=== PATIENT | male | born 1965 | race Caucasian/White ===

== ENCOUNTER 2022-07-30 16:24 | Outpatient (CLI) | payer OTHER, SELFPAY ==
--- NOTE | ~2022-07-30 | XR_ITS ---
XR hand LT 2V DATE: 07/30/2022 16:43 INDICATION: Metal survey prior to MR examination TECHNIQUE: AP and lateral views COMPARISON: None FINDINGS: No radiopaque or metallic soft tissue foreign body. No recent fracture or dislocation, periosteal reaction or bone destruction, erosive change or chondro calcinosis. IMPRESSION: Negative; no radiopaque or metallic foreign body Reviewed, dictated and finalized at location A.
--- NOTE | ~2022-07-30 | MR_ITS ---
EXAMINATION: MR knee LT wo con DATE: 07/30/2022 17:16 INDICATION: Left knee instability TECHNIQUE: Magnetic resonance imaging (MRI) of the left knee was performed without intravenous contra st. Sequences included coronal PD-weighted FSE, coronal PD-weighted FS FSE, sagittal T2-weighted FSE , sagittal PD-weighted FS FSE and axial PD weighted fat saturated FSE. COMPARISON: None. FINDINGS: Medial compartment: Longitudinal horizontal tear extending to the superior articular surface of the posterior horn and po sterior body of the medial meniscus. Tiny para labral cysts at the periphery of the junction of the b vernon and posterior horn with larger multilobulated para labral cyst extending laterally from the regio n of the posterior root. Deep chondral fissure without degenerative subchondral changes along the lat eral side of the central weightbearing medial femoral condyle. Remaining cartilage in the medial comp artment is normal. Lateral compartment: Lateral meniscus is normal. Articular cartilage is normal. Patellofemoral compartment: Trochlea preserved cartilage thickness but with deep chondral fissuring without degenerative subchond ral changes at both the medial and lateral patellar facets. Trochlear cartilage is normal. Ligaments and tendons: Anterior and posterior cruciate ligaments are normal. There is thickening along the proximal medial c ollateral ligament without significant increased signal or surrounding edema consistent with mild sca rring related to chronic sprain. The fibular collateral ligament complex is normal. The extensor mech anism is normal. The visualized medial and lateral hamstring tendons as well as the iliotibial band a re normal. Fluid: Physiologic amount of fluid in the joint space. No loose osteochondral bodies identified. Osseous/other: Normal marrow signal. No fracture or pathologic marrow replacing process. Prominent serpiginous subcu taneous varicosity along the lateral aspect of the knee. IMPRESSION: 1. Longitudinal horizontal tear at the posterior horn and posterior body of the medial meniscus with associated small para meniscal cyst. 2. 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 3. Mild scarring along the proximal medial collateral ligament, likely sequela of chronic sprain. Reviewed, dictated and finalized at location B. IMPRESSION: 1. Longitudinal horizontal tear at the posterior horn and posterior body of the medial meniscus with associated small para meniscal cyst. 2. 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 3. Mild scarring along the proximal medial collateral ligament, likely sequela of chronic sprain.
--- NOTE | ~2022-07-30 | XR_ITS ---
XR hand RT 2V DATE: 07/30/2022 16:43 INDICATION: Metal survey prior to MR examination TECHNIQUE: AP and lateral views COMPARISON: None FINDINGS: No radiopaque or metallic soft tissue foreign body. No fracture, dislocation, periosteal re action or bone destruction, erosive change or chondrocalcinosis. Joint spaces are preserved. IMPRESSION: Negative examination; no radiopaque or metallic foreign body Reviewed, dictated and finalized at location A.
== END 2022-07-30 16:25 ==
PROVIDERS: PCP Family Medicine; Visit Provider Physician Assistant Surgical
DX: S83.242A Other tear of medial meniscus, current injury, left knee, initial encounter (principal); X58.XXXA Exposure to other specified factors, initial encounter; M17.12 Unilateral primary osteoarthritis, left knee
CPT/HCPCS: 73120; 73721

== ENCOUNTER 2025-08-26 14:07 | Emergency (ER) | payer OTHER, SELFPAY ==
--- NOTE | 2025-08-26 14:10 | ED.EYEPROB ---
HPI - Eye Problem General Chief complaint: Eye Problems Stated complaint: R Eye Time Seen by Provider: 08/26/25 14:42 Source: patient and RN notes reviewed Mode of arrival: ambulatory Limitations: no limitations History of Present Illness HPI Narrative: 59-year-old male presents with concern for right eye pain. Reports he scratched it on Tuesday night when he was playing with his dog. Reports that her mostly on Tuesday and Tuesday and the pain is gotten a little better but is not resolved, reports he feels like there is something in it. He reports watery drainage. He flushed it. chief complaint: eye pain Related Data Home Medications ?Medication ?Instructions ?Recorded ?Confirmed ?Last Taken ?Type cetirizine 10 mg capsule (All Day 10 mg PO DAILY PRN 04/30/22 12/30/23 Unknown History Allergy (cetirizine)) omega 6-qrh-ubv-fish oil 100 cap PO 04/30/22 12/30/23 Unknown History mg-160 mg-1,000 mg capsule (Fish Oil) testosterone (AndroGel) 2 pump topical DAILY 04/30/22 12/30/23 Unknown History fluticasone propionate 50 1 spray intranasal DAILY 10/28/22 12/30/23 Unknown History mcg/actuation nasal spray,suspension (Flonase Allergy Relief) gabapentin 300 mg capsule 300 mg PO BID 10/28/22 12/30/23 Unknown History tramadol 50 mg tablet 50 mg PO Q6H PRN 10/28/22 12/30/23 Unknown History semaglutide (weight loss) 0.25 0.25 mg subcut WEEKLY 12/30/23 12/30/23 Unknown History mg/0.5 mL subcutaneous pen injector (Wegovy) buspirone 10 mg tablet 5 mg PO ONCE 08/26/25 08/26/25 Unknown History Allergies Allergy/AdvReac Type Severity Reaction Status Date / Time Sulfa (Sulfonamide Allergy Mild Rash Verified 08/26/25 14:22 Antibiotics) amoxicillin (From Augmentin) AdvReac Diarrhea Verified 08/26/25 14:22 clavulanic acid (From AdvReac Diarrhea Verified 08/26/25 14:22 Augmentin) Review of Systems Review of Systems: CONSTITUTIONAL: Denies malaise, chills, sweats, or fever. EYES: Denies visual changes. Reports right eye redness, irritation, watery discharge. 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 Sleep apnea Pre-diabetes Hip pain Left knee pain Low testosterone Kidney stones Family History Family History Father Heart disease Mother Diabetes mellitus Lung cancer Hypertension Sibling Drug overdose Grandparent Polio Grandparent Diabetes mellitus Hypertension High cholesterol Social History Social History (Updated 12/30/23 @ 16:26 by Peri Virgen MA) Smoking status: Former smoker Alcohol intake: unknown Substance use: current Substance use type: marijuana Lack of Transportation: No Lack of Food: Never True Current Housing: I Have Housing Concerned About Future Housing: No Difficulty Paying Gas/Electric Bills: Decline to Answer Difficulty Paying for Meds: No Currently Unemployed: No Education: Trade/Vocational Certificate Difficulty w/ Childcare or Family Care: No Living arrangements: with family Occupation/Education: occupation Gender identity (if verbalized by the patient): Male Sexual Orientation (if Verbalized by the Patient): Straight or Heterosexual Comments At time of signature, agree with nursing past medical, surgical, social and family history. There is no relevant family history pertinent to the presenting complaint Exam Narrative: GENERAL: Well-appearing, well-nourished, and in no acute distress. HEAD: Normocephalic, atraumatic. EYES: PERRLA, sclera clear, and EOMI. No nystagmus. Foreign body visible at 3:00 a.m. in relation to the pupil. Conjunctivae clear. Upper and lower eyelid unremarkable, no periorbital edema noted ENT: Nares clear, turbinates pink, no rhinorrhea or epistaxis. Mucous membranes moist. TM pearly barnes with sharp light reflex bilaterally; no tragal tenderness. NECK: Supple. CHEST: No respiratory distress. Speaks in full sentences. HEART: Regular rate and rhythm. SKIN: Warm, dry, no visible rash. NEURO: Alert and oriented x3. PSYCH: Normal mood and affect Course Course Emergency Course: Patient is aware of diagnosis, understands and agrees to treatment plan. Anticipatory guidance given. Patient agrees to follow-up as directed and is aware of reasons to seek care at the emergency department. Portions of this record may have been created with voice recognition software Level of Care: Express Care Visit Vital Signs Vital signs: Reviewed. Procedures FB Removal Eye Foreign Body #1: Foreign Body Removal Date: 08/26/25 Foreign Body Removal Time: 14:45 Time Out performed: Yes Location: eye (R) Topical anesthetic used: tetracaine Foreign body: metal Evidence of corneal penetration: Yes Technique: cotton tip swab and needle Procedure performed under: direct visualization with magnification Post-procedure medication: ophthalmic antibiotic Patient tolerated procedure: well Foreign Body Removal Narrative: Successful removal, no foreign body visualized after removal. Tetracaine 1 gtt instilled in right eye, fluorescein stain applied. Foreign body noted at approximately 3:00 a.m. o'clock in relation to the pupil. Eye washed with NS 100 ml. No foreign bodies or Kelby sign noted. MDM - Eye Problem MDM Narrative Medical decision making narrative: Consideration of the following conditions may be warranted for the presenting problem, they are not final diagnoses: Bacterial conjunctivitis, allergic conjunctivitis, viral conjunctivitis, foreign body, blepharitis, chalazion, hordeolum, corneal abrasion, preseptal cellulitis, orbital cellulitis. No evidence of proptosis, ophthalmoplegia, vision loss, pain with eye movement. Exam findings show no acute concerns or changes; patient is non-toxic appearing and is in no distress. Patient is appropriate for outpatient treatment and follow-up. Critical Care Time Critical Care Time Critical Care Time: No Discharge Plan Discharge Clinical Impression: Foreign body in eye Patient Disposition: Home Condition: Stable Instructions: How to Use Eye Drops (ED) Additional Instructions: Corneal abrasions will heal in 1-2 days. Keep your eye shut and wear sunglasses or stay in low light to avoid light sensitivity. Do not touch or rub your eye or use a fabric patch You may take Tylenol or ibuprofen for pain Follow-up with PCP or laboratory apparatus glass grinder if condition is not improving in 2-3days. Patient Language: Cymraes Prescriptions: New polymyxin B sulf-trimethoprim 10,000 unit- 1 mg/mL drops 1 drp RIGHT EYE Q3H 7 Days Qty: 10 0RF Rx Instructions: while awake; do not exceed 6 doses in 24 hours No Action buspirone 10 mg tablet 5 mg PO ONCE gabapentin 300 mg capsule 300 mg PO BID fluticasone propionate [Flonase Allergy Relief] 50 mcg/actuation spray,suspension 1 spray intranasal DAILY Rx Instructions: administer into each nostril tramadol 50 mg tablet 50 mg PO Q6H PRN Wegovy 0.25 mg/0.5 mL pen injector 0.25 mg subcut WEEKLY Rx Instructions: administer weeks 1 through 4 of therapy Fish Oil 100-160-1,000 mg capsule PO All Day Allergy (cetirizine) 10 mg capsule 10 mg PO DAILY PRN testosterone [AndroGel] 20.25 mg/1.25 gram (1.62 %) gel in metered-dose pump 2 pump topical DAILY Rx Instructions: apply 1 pump amount over max area of EACH upper arm and shoulder lisinopril 40 mg tablet 40 mg PO DAILY Qty: 30 0RF ropinirole 1 mg tablet 1 mg PO QHS Qty: 90 1RF sertraline 100 mg tablet 100 mg PO DAILY Qty: 30 3RF allopurinol 300 mg tablet 300 mg PO DAILY Qty: 90 1RF Follow-up/Referrals: Josse Aparicio MD [Primary Care Provider, [facility]] Time of Disposition: 14:58
[2025-08-26 14:22] VITALS: BP 125/69; PULSE 78; RESP 20; TEMP 36.1; O2SAT 99
[2025-08-26] MEDS: FLUORESCEIN SOD 1 MG/STRIP RIGHT EYE (14:39)
[2025-08-26] MEDS: DACRIOSE EYE IRRIGATION 118 ML BOTTLE RIGHT EYE (14:39)
[2025-08-26] MEDS: TETRACAINE HCL 0.5% OPHTH SOLN 4 ML BTL RIGHT EYE (14:39)
--- OUTSIDE RECORDS SUMMARY | 2025-08-26 15:06 | XMS_ITS | Clinical Summary ---
Author Organization [facility] Address [address] [place] [address] Care Team Providers Care Railcar Carpenter Name Role Phone Unavailable Primary Care Provider Unavailabl e Social History Tobacco Use Types Packs/Day Years Used Date Smoking Tobacco: Never Assessed Sex and Gender Information Value Date Recorded Sex Assigned at Not on file Legal Sex Male 6:39 PM CDT Gender Identity Not on file Sexual Orientation Not on file Plan of Treatment Health Maintenance Due Date Last Done Comments Colorectal Cancer Screening Colonoscopy (10 Years) 1965 Annual Physical 1968 Hepatitis C 12/06/1983 DTaP, Tdap and Td Vaccines ( 1 - Tdap) 1984 Pneumococcal Vaccine: 50+ Ye ars (1 of 1 - PCV) 12/06/2015 Zoster Vaccines (1 of 2) 12/06/2015 COVID-19 Vaccine ( - 2024-2 6 season) 2025 Influenza Adult (#1) 2025 Hepatitis A Vaccines Aged Out No long er eligible based on patient's age to complete this topic Meningococcal B Vaccine Aged Out No l onger eligible based on patient's age to complete this topic Meningococcal Vaccine Aged Out No gregory yvette eligible based on patient's age to complete this topic RSV Immunizations Under 20 Months Aged Out No longer eligible based on patient's age to complete this topic
--- OUTSIDE RECORDS SUMMARY | 2025-08-26 15:06 | XMS_ITS | Clinical Summary ---
Author Organization [facility] Address [address] [place] [address] Care Team Providers Care Production Material Coordinator Name Role Phone Josse Aparicio MD Primary Care Provider [phone] Source Comments [facility],non-owned Affiliates and Associated Physician Practices is amultiple site organization consisting of ambulatory clinics and hospital sitesin [place], [place], [place] and [place]. This disclosure is being madepursuant to the Care Everywhere program and may not contain all information available regarding this patient. Last updated 18.[facility] [place] Social History Tobacco Use Types Packs/Day Years Used Date Smoking Tobacco: Never Assessed Sex and Gender Information Value Date Recorded Sex Assigned at Not on file Legal Sex Male 3:43 PM CDT Gender Identity Not on file Sexual Orientation Not on file Plan of Treatment Health Maintenance Due Date Last Done Comments COLOGUARD (AGES 45-75) - COL ON CA SCREENING 1965 COLON MONITORING 1965 COLONOSCOPY - COLON CA SCREENING 1965 CT COLONOGRAPHY - COLON CA SCREENING 1965 Colorectal Cancer Screening 1965 FIT - COLON CA SCREENING 1965 FLEX SIG - COLON CA SCREENING 1965 LIPID TESTING 1965 HIV SCREENING 1980 HEPATITIS C SCREENING 12/01/1983 DTAP/TDAP/TD VACCINES (1 - Tdap) 1984 HEPATITIS B VACCINE (1 of 3 - 19+ 3-dose series) 1984 PNEUMOCOCCAL VACCINE 50+ (1 of 1 - PCV) 12/06/2015 ZOSTER VACCINE (1 of 2) 12/06/2015 DEPRESSION SCREENING 09/26/2024 COVID-19 VACCINE ( - 2024-2 6 season) 2025 INFLUENZA VACCINE (#1) 2025 HIB VACCINE Aged Out No longer eligi ble based on patient's age to complete this topic HPV VACCINE Aged Out No longer eligi ble based on patient's age to complete this topic MENINGOCOCCAL (Group B) VACC INE SHARED DECISION-MAKING Aged Out No longer eligibl e based on patient's age to complete this topic MENINGOCOCCAL GROUPS A/C/Y/W VACCINE Aged Out No longer eligible b ased on patient's age to complete this topic Insurance KALYAN MYRICK [id number] [facility] Care Teams Production Material Coordinator Relationship Specialty Start Date End Date Josse Aparicio MD [address] [place] [address] KALYAN Persaud [phone] PCP - General Family Medicine 08/13/24
--- OUTSIDE RECORDS SUMMARY | 2025-08-26 15:06 | XMS_ITS | Encounter Summary ---
Author Organization [facility] Address [facility] [place] [address] Care Team Providers Care Plastic Maker Name Role Phone Josse Aparicio MD Primary Care Provider [phone] Reason for Referral * Consultation (Routine) - Closed Specialty Diagnoses / Procedures Referred By Contac t Referred To Contact Plastic Surgery Diagnoses Excessive and redundant skin and subcutaneous tissue Unknown, Provider Floridalma Chin MD [address] [place] [address] Phone: tel: fax: Referral ID Status Reason Start Date Expiration Date V isits Requested Visits Authorized [id number] Closed Specialty Services Required 08/10/2024 08/10/2025 1 1 N DRIVER SALESPERSON Encounter Details Date Type Department Care Team (Late st Contact Info) Description 08/10/2024 Transcribe Orders [facility] - Centralized Scheduling [address] [place] [phone] Josi Batista Update Information Excessive and redundant skin and subcutaneous tissue Social History Tobacco Use Types Packs/Day Years Used Date Smoking Tobacco: Never Assessed Sex and Gender Information Value Date Recorded Sex Assigned at Not on file Legal Sex Male 3:43 PM CDT Gender Identity Not on file Sexual Orientation Not on file documented as of this encounter Plan of Treatment Scheduled Referrals Name Type Priority Associated Diagnoses Orde r Schedule AMB REFERRAL TO PLASTIC SURGERY Outpatient Referral Routine Excessive and redundant skin and subcutaneous tissue 1 Occurrences starting 08/10/2024 until 08/10/2025 documented as of this encounter Visit Diagnoses Diagnosis Excessive and redundant skin and subcutaneous tissue- Primary documented in this encounter Care Teams Plastic Maker Relationship Specialty Start Date End Date Josse Aparicio MD [address] [place] [address] PCP - General Family Medicine 08/13/24 documented as of this encounter
== END 2025-08-26 15:01 | disposition home or self-care (01) ==
PROVIDERS: Emergency Provider Nurse Practitioner; PCP Family Medicine
DX: T15.81XA Foreign body in other and multiple parts of external eye, right eye, initial encounter (principal); W44.8XXA Other foreign body entering into or through a natural orifice, initial encounter; I10 Essential (primary) hypertension; R73.03 Prediabetes; G25.81 Restless legs syndrome; E78.00 Pure hypercholesterolemia, unspecified; E66.01 Morbid (severe) obesity due to excess calories; Z68.33 Body mass index [BMI] 33.0-33.9, adult; M10.9 Gout, unspecified; F33.41 Major depressive disorder, recurrent, in partial remission
CPT/HCPCS: 65205; 99213; A9270; G0463